=== PATIENT | male | born 1960 | race Two or more races ===

== ENCOUNTER 2023-06-24 09:58 | Inpatient (IN) | payer OTHER ==
[~2023-06-24] VITALS: Ht 157.5 cm; Wt 95.3 kg
[2023-06-24] MEDS: IV NS 0.9% 1,000 ML BAG IV ONE (10:31)
[2023-06-24 10:40] LABS: BASOPHILS # (AUTO) 0.1 K/uL (0.0-0.2); BASOPHILS % (AUTO) 0.5 % (0.0-2.0); HEMATOCRIT 35 % (39-51); LYMPHOCYTES # (AUTO) 1.2 K/uL (0.8-4.8); NEUTROPHILS # (AUTO) 14.9 K/uL (1.8-8.9)
[2023-06-24 10:43] LABS: HEMOGLOBIN 11.4 g/dL (13.5-17.5); LYMPHOCYTES % (AUTO) 7.2 % (20.0-44.0); MEAN CORPUSCULAR HEMOGLOBIN 28 PG (26.0-33.0); MEAN CORPUSCULAR HGB CONC 33 g/dl (31.0-36.0); MEAN CORPUSCULAR VOLUME 85 fL (80-96); MONOCYTES # (AUTO) 0.8 K/uL (0.1-1.30); MONOCYTES % (AUTO) 4.5 % (2.0-12.0); NEUTROPHILS % (AUTO) 87.8 % (43.0-81.0); PLATELET COUNT (AUTO) 443 K/uL (150-450); RED BLOOD CELL COUNT(AUTO) 4.12 MIL/uL (4.5-6.0); RED CELL DISTRIBUTION WIDTH 15.8 % (11.5-15.0); WHITE BLOOD COUNT (AUTO) 16.9 K/uL (4.3-11.0)
[2023-06-24 10:57] LABS: APPEARANCE,URINE Clear (CLEAR); BILIRUBIN,URINE Negative (NEGATIVE); BLOOD, URINE Moderate Ery/uL (NEGATIVE); COLOR,URINE YELLOW (YELLOW); KETONES,URINE 80 mg/dL (NEGATIVE); LEUKOCYTE ESTERASE ,URINE Negative (NEGATIVE); NITRITE, URINE Negative (NEGATIVE); PH,URINE 6.5 (5.0-8.0); PROTEIN,URINE >=300 mg/dl (NEGATIVE); UGLUCOSE 500 MG/DL mg/dL (NEGATIVE)
[2023-06-24 11:07] LABS: ALANINE AMINOTRANSFERASE 35 U/L (12-78); ALBUMIN 2.3 g/dL (3.4-5.0); ALKALINE PHOSPHATASE 172 U/L (46-116); ASPARTATE AMINOTRANSFERASE 20 U/L (15-37); BILIRUBIN,DIRECT 0.3 mg/dL (0.0-0.2); BILIRUBIN,TOTAL 0.8 mg/dL (0.2-1.0); CALCIUM, SERUM 8.1 mg/dL (8.5-10.1); CARBON DIOXIDE 27 mmol/L (21-32); CHLORIDE 91 mmol/L (98-107); CREATININE 1.3 mg/dL (0.6-1.3); GLUCOSE 365 mg/dL (74-106); LIPASE 22 U/L (16-77); NT-PRO BNP 989 pg/mL (0-125); POTASSIUM 3.6 mmol/L (3.5-5.1); SODIUM SERUM 126 mmol/L (136-145); TOTAL PROTEIN, SERUM 8.1 g/dL (6.4-8.2); UREA NITROGEN, BLOOD 7 mg/dL (7-18)
[2023-06-24 11:09] LABS: ADD URINE CULTURE NO; BACTERIA,URINE Few /HPF (None Seen); SQUAMOUS EPITHELIAL CELL,UR Few /HPF (None Seen); WBC,URINE 0-2 /HPF (0-3)
[2023-06-24] MEDS: CEFTRIAXONE 1GM BAG (ER ONLY) 1 GM/50 ML PIGGYBACK IV ONE (13:00)
[2023-06-24] MEDS ORDERED: AMPH30CA3 PO (13:01)
[2023-06-24] MEDS ORDERED: ATOR40TA PO (13:01)
[2023-06-24] MEDS ORDERED: AMLO10TA4 PO (13:01)
[2023-06-24] MEDS ORDERED: OLME40TA18 PO (13:01)
[2023-06-24] MEDS ORDERED: METF-442 PO (13:01)
[2023-06-24] MEDS ORDERED: ESZO3TAB27 PO (13:01)
[2023-06-24] MEDS ORDERED: BUPR8TAB4 SL (13:01)
[2023-06-24] MEDS ORDERED: DULO60CA45 PO (13:01)
[2023-06-24] MEDS ORDERED: LAMO25TA5 PO (13:01)
[2023-06-24] MEDS: AZITHROMYCIN 500 MG in IV D5W 250 ML IV ONE (13:30)
[2023-06-24 14:53] LABS: SITE, VBG Other; VBG BASE EXCESS 0.8 mmol/L (-3-3); VBG COHb 0.6 %; VBG MetHb 0.4 %; VBG O2Hb 45.7 %; VBG OXYGEN SATURATION 46.2 %; VBG PCO2 36.2 mmHg (40-52); VBG PH 7.449 (7.31-7.41); VBG PO2 23.9 mmHg (30-50); VBG TOTAL HEMOGLOBIN 12.9 G/dL (13.5-18.0)
[2023-06-24 16:00] VITALS: BP 168/74; TEMP 100; O2SAT 95
[2023-06-24] MEDS ORDERED: Z GUARD REMEDY 4 OZ OINT TP PRN (16:30)
[2023-06-24] MEDS ORDERED: HYDROCODONE/APAP 5/325MG TABLET PO PRN (16:30)
[2023-06-24] MEDS ORDERED: DEXTROSE 50%-WATER 50 ML DISP.SYRIN IV PRN ×2 (16:30→18:00)
[2023-06-24] MEDS ORDERED: MAGNESIUM HYDROXIDE 30 ML UDC PO PRN (16:30)
[2023-06-24] MEDS ORDERED: ZOLPIDEM TARTRATE 5 MG TABLET PO PRN (16:30)
[2023-06-24] MEDS: METFORMIN 500 MG TABLET PO SCH (16:49)
[2023-06-24] MEDS: ENOXAPARIN SODIUM 40 MG/0.4 ML DISP.SYRIN SQ SCH (16:49)
[2023-06-24] MEDS: BLOOD SUGAR DIAGNOSTIC 1 EACH STRIP IN SCH (17:18)
[2023-06-24] MEDS: INSULIN REGULAR, HUMAN 100 UNIT/ML 3 ML VIAL SQ PRN ×2 (17:19→23:05)
[2023-06-24] MEDS: LamoTRIgine 25 MG TABLET PO SCH (17:38)
[2023-06-24] MEDS: BLOOD SUGAR DIAGNOSTIC 1 EACH STRIP VI SCH (17:57)
[2023-06-24 20:00] VITALS: BP 134/65; TEMP 101.1; O2SAT 95
[2023-06-24] MEDS: MAG HYDROX/AL HYDROX/SIMETH 30 ML UDC PO PRN (20:06)
[2023-06-24] MEDS: ACETAMINOPHEN 325 MG TABLET PO PRN (23:03)
[2023-06-24] MEDS: ATORVASTATIN 40 MG TABLET PO SCH (23:03)
[2023-06-24] MEDS: ONDANSETRON HCL/PF 4 MG/2 ML VIAL IVP PRN (23:54)
[2023-06-25] VITALS: BP 138/74; TEMP 98.4; O2SAT 100
[2023-06-25 04:00] VITALS: BP 144/72; TEMP 99.9; O2SAT 97
[2023-06-25] MEDS: IV NS 0.9% 1,000 ML IV PRN (06:38)
[2023-06-25 07:07] LABS: BASOPHILS % (AUTO) 0.1 % (0.0-2.0); HEMATOCRIT 36 % (39-51); LYMPHOCYTES # (AUTO) 1.9 K/uL (0.8-4.8); LYMPHOCYTES % (AUTO) 11.1 % (20.0-44.0); MEAN CORPUSCULAR HEMOGLOBIN 28 PG (26.0-33.0); MEAN CORPUSCULAR HGB CONC 34 g/dl (31.0-36.0); MEAN CORPUSCULAR VOLUME 84 fL (80-96); MONOCYTES # (AUTO) 1.2 K/uL (0.1-1.30); MONOCYTES % (AUTO) 7.4 % (2.0-12.0); NEUTROPHILS # (AUTO) 13.6 K/uL (1.8-8.9); NEUTROPHILS % (AUTO) 81.4 % (43.0-81.0); PLATELET COUNT (AUTO) 457 K/uL (150-450); RED BLOOD CELL COUNT(AUTO) 4.28 MIL/uL (4.5-6.0); RED CELL DISTRIBUTION WIDTH 15.8 % (11.5-15.0); WHITE BLOOD COUNT (AUTO) 16.7 K/uL (4.3-11.0)
[2023-06-25 07:09] LABS: CALCIUM, SERUM 8.5 mg/dL (8.5-10.1); PHOSPHORUS 1.3 mg/dL (2.5-4.9); POTASSIUM 3.6 mmol/L (3.5-5.1)
[2023-06-25 07:16] LABS: THYROID STIMULATING HORMONE 0.366 uIU/mL (0.358-3.74)
[2023-06-25 08:00] VITALS: BP 143/89; TEMP 100.8; O2SAT 99
[2023-06-25] MEDS: PANTOPRAZOLE 40 MG TABLET.DR PO SCH (08:29)
[2023-06-25] MEDS: AZITHROMYCIN 500 MG in IV D5W 250 ML IV SCH (08:49)
[2023-06-25] MEDS: DULOXETINE HCL 20 MG CAPSULE.DR PO SCH (08:49)
[2023-06-25] MEDS: AMLODIPINE BESYLATE 10 MG TABLET PO SCH (08:50)
[2023-06-25] MEDS ORDERED: CEFTRIAXONE 1GM BAG (ER ONLY) 1 GM/50 ML PIGGYBACK IV SCH (09:00)
[2023-06-25 12:00] VITALS: BP 183/67; TEMP 100.2; O2SAT 95
[2023-06-25] MEDS: OLANZAPINE 10 MG VIAL IM ONE (13:34)
[2023-06-25 16:00] VITALS: BP 166/79; TEMP 98.8; O2SAT 95
[2023-06-25] MEDS: K PHOS NEUTRAL 250 MG TABLET PO ONE (18:20)
[2023-06-25 20:00] VITALS: BP 148/58; TEMP 98.4; O2SAT 98
[2023-06-26] VITALS: BP 150/74; TEMP 98.5; O2SAT 100
[2023-06-26 04:00] VITALS: BP 154/56; TEMP 99.5; O2SAT 100
[2023-06-26 07:00] LABS: CALCIUM, SERUM 8.7 mg/dL (8.5-10.1); PHOSPHORUS 1.9 mg/dL (2.5-4.9); POTASSIUM 3.6 mmol/L (3.5-5.1)
[2023-06-26 08:00] VITALS: BP 140/66; TEMP 97.7; O2SAT 100
[2023-06-26] MEDS: LOSARTAN POTASSIUM 50 MG TABLET PO SCH (08:52)
[2023-06-26 10:31] LABS: THYROID STIMULATING HORMONE 0.472 uIU/mL (0.358-3.74); URIC ACID 2.8 mg/dL (2.6-7.2)
[2023-06-26 12:00] VITALS: BP 150/69; TEMP 97.9; O2SAT 99
[2023-06-26] MEDS ORDERED: LOSARTAN/HCTZ 50-12.5MG/ 1 EA TABLET PO SCH (14:00)
[2023-06-26 15:29] LABS: URINE TOTAL PROTEIN 18.9 mg/dL (0-11.9)
[2023-06-26 16:00] VITALS: BP 165/89; TEMP 98; O2SAT 97
[2023-06-26] MEDS: K PHOS NEUTRAL 250 MG TABLET PO ONE (17:02)
[2023-06-26 20:00] VITALS: BP 131/64; TEMP 98.2; O2SAT 96
[2023-06-26] MEDS: *INSULIN REGULAR(HUMULIN R)HUM 100 UNIT/ML VIAL SQ PRN (22:19)
[2023-06-27] VITALS: BP 129/66; TEMP 98.4; O2SAT 97
[2023-06-27 04:00] VITALS: BP 122/65; TEMP 98.1; O2SAT 97
[2023-06-27 07:16] LABS: BASOPHILS % (AUTO) 0.1 % (0.0-2.0); HEMATOCRIT 34 % (39-51); HEMOGLOBIN 11.5 g/dL (13.5-17.5); LYMPHOCYTES # (AUTO) 2.3 K/uL (0.8-4.8); LYMPHOCYTES % (AUTO) 18.3 % (20.0-44.0); MEAN CORPUSCULAR HEMOGLOBIN 28 PG (26.0-33.0); MEAN CORPUSCULAR HGB CONC 34 g/dl (31.0-36.0); MEAN CORPUSCULAR VOLUME 84 fL (80-96); MONOCYTES # (AUTO) 1.1 K/uL (0.1-1.30); MONOCYTES % (AUTO) 8.6 % (2.0-12.0); NEUTROPHILS # (AUTO) 9.1 K/uL (1.8-8.9); PLATELET COUNT (AUTO) 399 K/uL (150-450); WHITE BLOOD COUNT (AUTO) 12.4 K/uL (4.3-11.0)
[2023-06-27 07:21] LABS: ALBUMIN 1.9 g/dL (3.4-5.0); BILIRUBIN,TOTAL 0.6 mg/dL (0.2-1.0); CALCIUM, SERUM 8.2 mg/dL (8.5-10.1); PHOSPHORUS 1.8 mg/dL (2.5-4.9); POTASSIUM 3.3 mmol/L (3.5-5.1); TOTAL PROTEIN, SERUM 7.3 g/dL (6.4-8.2)
[2023-06-27 08:00] VITALS: BP 122/86; TEMP 97.7; O2SAT 96
[2023-06-27 08:15] VITALS: BP 122/86
[2023-06-27] MEDS: GLUCERNA SHAKE 237 ML CAN PO SCH (08:16)
[2023-06-27] MEDS: POTASSIUM CHLORIDE 20 MEQ TAB.PRT.SR PO ONE (10:45)
[2023-06-28] MEDS ORDERED: AZITHROMYCIN 250 MG TABLET PO SCH (09:00)
[2023-06-30 15:06] LABS: *SPE A/G RATIO 0.5 (0.7-1.7); *SPE ALBUMIN 2.2 g/dL (2.9-4.4); *SPE ALPHA-1-GLOBULIN 0.4 g/dL (0.0-0.4); *SPE ALPHA-2-GLOBULIN 1.3 g/dL (0.4-1.0); *SPE BETA GLOBULIN 1.2 g/dL (0.7-1.3); *SPE GLOBULIN, TOTAL 4.4 g/dL (2.2-3.9); *SPE M-SPIKE Not Observed g/dL (Not Observed); *SPE PROTEIN TOTAL 6.6 g/dL (6.0-8.5); *SPEGAMMA GLOBULIN 1.4 g/dL (0.4-1.8)
== END 2023-06-27 15:00 | disposition home or self-care (01) | DRG 194 ==
LOC: ER 10:00 → TELE1 15:17 → MEDSG1 06-26 13:30
DX: J15.9 Unspecified bacterial pneumonia (principal); E44.0 Moderate protein-calorie malnutrition; E87.1 Hypo-osmolality and hyponatremia; E11.65 Type 2 diabetes mellitus with hyperglycemia; E78.5 Hyperlipidemia, unspecified; E88.09 Other disorders of plasma-protein metabolism, not elsewhere classified; F32.A Depression, unspecified; I10 Essential (primary) hypertension; D64.9 Anemia, unspecified; E66.01 Morbid (severe) obesity due to excess calories; E86.1 Hypovolemia; Z20.822 Contact with and (suspected) exposure to COVID-19; R53.1 Weakness; S01.21XA Laceration without foreign body of nose, initial encounter; S01.81XA Laceration without foreign body of other part of head, initial encounter; W19.XXXA Unspecified fall, initial encounter; Y93.9 Activity, unspecified; Y92.009 Unspecified place in unspecified non-institutional (private) residence as the place of occurrence of the external cause; Z68.38 Body mass index [BMI] 38.0-38.9, adult; F17.210 Nicotine dependence, cigarettes, uncomplicated
CPT/HCPCS: 36415; 71045-TC; 80048-TC; 80053-TC; 80061-TC; 80076-TC; 81001; 82010-TC; 82803-TC; 82962-TC; 83690-TC; 83735-TC; 83880; 83935-TC; 84100-TC; 84155; 84165; 84300-TC; 84443-TC; 84484-TC; 84550-TC; 85025-TC; 87040-TC; 87086-TC; 93307-TC; 97116-TC; 97530-TC; A4223; G0378; J0456; J1650; J1815; J2405; J3490; J7030; J7060

== ENCOUNTER 2023-07-26 00:58 | Emergency (ER) | payer OTHER ==
[~2023-07-26] VITALS: Ht 175.3 cm; Wt 95.3 kg
[~2023-07-26 00:58] MED LIST: AMLO10TA4 PO; AMPH30CA3 PO; ATOR40TA PO; BUPR8TAB4 SL; DULO60CA45 PO; ESZO3TAB27 PO; LAMO25TA5 PO; METF-442 PO; OLME40TA18 PO
[2023-07-26 01:09] VITALS: TEMP 98.6
[2023-07-26 01:20] LABS: BASOPHILS % (AUTO) 0.4 % (0.0-2.0); EOSINOPHILS # (AUTO) 0.1 K/uL (0.0-0.7); EOSINOPHILS % (AUTO) 0.5 % (0.0-6.0); HEMATOCRIT 43 % (39-51); HEMOGLOBIN 14.4 g/dL (13.5-17.5); LYMPHOCYTES # (AUTO) 5.7 K/uL (0.8-4.8); LYMPHOCYTES % (AUTO) 47.3 % (20.0-44.0); MEAN CORPUSCULAR HEMOGLOBIN 29 PG (26.0-33.0); MEAN CORPUSCULAR HGB CONC 33 g/dl (31.0-36.0); MEAN CORPUSCULAR VOLUME 86 fL (80-96); MONOCYTES # (AUTO) 0.7 K/uL (0.1-1.30); MONOCYTES % (AUTO) 6.1 % (2.0-12.0); NEUTROPHILS # (AUTO) 5.5 K/uL (1.8-8.9); NEUTROPHILS % (AUTO) 45.7 % (43.0-81.0); PLATELET COUNT (AUTO) 321 K/uL (150-450); RED BLOOD CELL COUNT(AUTO) 5.06 MIL/uL (4.5-6.0); RED CELL DISTRIBUTION WIDTH 18.5 % (11.5-15.0)
[2023-07-26 01:32] LABS: PARTIAL THROMBOPLASTIN TIME 27.5 SEC (24.3-34.3); PROTHROMBIN TIME 10.6 SECS (9.2-11.1)
[2023-07-26 01:42] LABS: CALCIUM, SERUM 8.6 mg/dL (8.5-10.1); CARBON DIOXIDE 26 mmol/L (21-32); CHLORIDE 99 mmol/L (98-107); CREATININE 1.3 mg/dL (0.6-1.3); GLUCOSE 111 mg/dL (74-106); POTASSIUM 3.8 mmol/L (3.5-5.1); SODIUM SERUM 136 mmol/L (136-145); UREA NITROGEN, BLOOD 21 mg/dL (7-18)
[2023-07-26 01:46] LABS: ALANINE AMINOTRANSFERASE 65 U/L (12-78); ALBUMIN 3.4 g/dL (3.4-5.0); ALKALINE PHOSPHATASE 150 U/L (46-116); ASPARTATE AMINOTRANSFERASE 25 U/L (15-37); BILIRUBIN,DIRECT 0.2 mg/dL (0.0-0.2); BILIRUBIN,TOTAL 1.1 mg/dL (0.2-1.0); TOTAL PROTEIN, SERUM 8.6 g/dL (6.4-8.2)
[2023-07-26 03:30] LABS: APPEARANCE,URINE SLIGHTLY CLOUDY (CLEAR); BILIRUBIN,URINE NEGATIVE (NEGATIVE); BLOOD, URINE NEGATIVE Ery/uL (NEGATIVE); COLOR,URINE YELLOW (YELLOW); KETONES,URINE 2+ mg/dL (NEGATIVE); LEUKOCYTE ESTERASE ,URINE NEGATIVE (NEGATIVE); NITRITE, URINE NEGATIVE (NEGATIVE); PROTEIN,URINE NEGATIVE (NEGATIVE); UGLUCOSE 3+ mg/dL (NEGATIVE); UROBILINOGEN,URINE 0.2 EU/dL (0.2)
[2023-07-26 03:34] LABS: ADD URINE CULTURE NO; BACTERIA,URINE Rare /HPF (None Seen); RBC,URINE 0-2 /HPF (0-2); SQUAMOUS EPITHELIAL CELL,UR Few /HPF (None Seen); WBC,URINE 0-2 /HPF (0-3)
[2023-07-26 03:42] LABS: AMPHETAMINE, URINE NEGATIVE (NEGATIVE); BARBITURATE, URINE NEGATIVE (NEGATIVE); BENZODIAZEPINE, URINE NEGATIVE (NEGATIVE); COCCAINE, URINE NEGATIVE (NEGATIVE); OPIATE, URINE NEGATIVE (NEGATIVE); PHENCYCLIDINE SCREEN,URINE NEGATIVE (NEGATIVE)
[2023-07-26 04:10] LABS: CANNABINOID, URINE POSITIVE (NEGATIVE)
[2023-07-26] MEDS ORDERED: CEFTRIAXONE 1 G VIAL ONE (04:56)
[2023-07-26] MEDS ORDERED: LEVETIRACETAM (500MG) 500 MG/5 ML VIAL IV ONE (04:56)
[2023-07-26] MEDS ORDERED: AZITHROMYCIN 500 MG VIAL ONE (04:57)
[2023-07-26] MEDS: LEVETIRACETAM (500MG) 500 MG in IV NS 0.9% 100 ML IV SCH (05:00)
[2023-07-26] MEDS ORDERED: CEFTRIAXONE 1GM BAG (ER ONLY) 50 ML IV ONE (05:16)
[2023-07-26] MEDS: CEFTRIAXONE 1GM BAG (ER ONLY) 1 GM/50 ML PIGGYBACK IV ONE (05:21)
[2023-07-26] MEDS: AZITHROMYCIN 500 MG in IV D5W 250 ML IV ONE (05:32)
[2023-07-26 10:32] VITALS: BP 117/74; O2SAT 98
== END 2023-07-26 10:39 | disposition short-term general hospital (02) ==
LOC: ER 01:04
DX: J18.9 Pneumonia, unspecified organism (principal); R41.82 Altered mental status, unspecified; I10 Essential (primary) hypertension; E11.9 Type 2 diabetes mellitus without complications; Z79.84 Long term (current) use of oral hypoglycemic drugs; Z79.899 Other long term (current) drug therapy
CPT/HCPCS: 99291; 96365; 70450; 71045; 96368; 93005; 85025; 80048; 80076; 36415; 84484; 85730; 82962; 80307; 81001; J7030 ×2; J0456; A4223; J0696; J1953 ×2; J7060